=== PATIENT | male | born 1975 | race Caucasian/White ===

== ENCOUNTER 2023-06-04 08:15 | Day surgery (SDC) | payer OTHER ==
[~2023-06-04] VITALS: Ht 172.7 cm; Wt 110.6 kg
[~2023-06-04 08:15] MED LIST: NS 1,000 ML IV ONE
[2023-06-04] MEDS ORDERED: LIDOCAINE 2% 100MG/5ML SDV (FOR ANES.) As Ordered ONE (09:41)
[2023-06-04] MEDS ORDERED: propofoL 200 MG/20 ML VIAL As Ordered ONE (09:41)
[2023-06-04 09:57] VITALS: TEMP 97
[2023-06-04 10:15] VITALS: BP 129/80; O2SAT 98
== END 2023-06-04 10:27 | disposition home or self-care (01) ==
LOC: M OPP 08:15
PROVIDERS: ATTEND Surgery
DX: Z12.11 Encounter for screening for malignant neoplasm of colon (principal); G47.30 Sleep apnea, unspecified; Z99.89 Dependence on other enabling machines and devices